=== PATIENT | male | born 1970 | race American Indian/Alaskan Native ===

== ENCOUNTER 2017-12-23 15:38 | Inpatient (IN) | payer MEDICAID ==
[~2017-12-23] VITALS: Ht 180.3 cm; Wt 109.1 kg
[2017-12-23] MEDS ORDERED: ondansetron/PF 4mg/2ml inj IV ONE (15:50)
[2017-12-23] MEDS ORDERED: normal saline 1000ML IV soln IV ONE (15:50)
[2017-12-23] MEDS ORDERED: morphine 4 MG/ML inj SYRINge IV ONE (15:50)
[2017-12-23 16:30] LABS: BASOPHILS # (AUTO) 0.1 X10'3 (0-0.2); BASOPHILS % (AUTO) 0.6 % (0-1); EOSINOPHILS # (AUTO) 0.1 X10'3 (0-0.9); EOSINOPHILS % (AUTO) 0.7 % (0-6); HEMATOCRIT 39.5 % (42.0-52.0); HEMOGLOBIN 13.7 g/dl (14.0-17.9); LYMPHOCYTES # (AUTO) 1.9 X10'3 (1.1-4.8); LYMPHOCYTES % (AUTO) 16.7 % (21-51); MEAN CORPUSCULAR HEMOGLOBIN 29.6 PG (27.0-31.0); MEAN CORPUSCULAR HGB CONC 34.8 % (33.0-36.5); MEAN CORPUSCULAR VOLUME 85.1 FL (78-98); MEAN PLATELET VOLUME 7.9 FL (7.4-10.4); MONOCYTES % (AUTO) 8.5 % (2-12); NEUTROPHILS # (AUTO) 8.2 X10'3 (1.8-7.7); NEUTROPHILS % (AUTO) 73.5 % (42-75); PLATELET COUNT 371 X10'3 (140-440); RED BLOOD COUNT 4.64 X10'6 (4.70-6.10); RED CELL DISTRIBUTION WIDTH 12.2 % (11.5-14.5); WHITE BLOOD COUNT 11.3 X10'3 (4.5-11.0)
[2017-12-23 16:37] LABS: ALANINE AMINOTRANSFERASE 29 U/L (12-78); ALBUMIN 2.7 G/DL (3.4-5.0); ALBUMIN/GLOBULIN RATIO 0.6 (1.1-1.5); ALKALINE PHOSPHATASE 93 IU/L (46-116); ANION GAP 14 (8-16); ASPARTATE AMINO TRANSFERASE 21 U/L (10-37); BILIRUBIN,TOTAL 0.4 MG/DL (0.1-1.0); BLOOD UREA NITROGEN 12 MG/DL (7-18); BUN/CREATININE RATIO 13.8 (5.4-32.0); CALCIUM 8.2 MG/DL (8.5-10.1); CHLORIDE 104 MMOL/L (99-107); CREATININE 0.87 MG/DL (0.60-1.10); GLUCOSE 94 MG/DL (70-104); POTASSIUM 3.7 MMOL/L (3.5-5.1); SODIUM 137 MMOL/L (135-145); TOTAL CARBON DIOXIDE 18.9 MMOL/L (24-32); TOTAL PROTEIN 6.9 G/DL (6.4-8.2); eGFR > 90 ML/MIN
[2017-12-23 16:38] LABS: INR 1.1 INR; PROTHROMBIN TIME 10.9 SECONDS (9.0-12.0)
[2017-12-23] MEDS ORDERED: ondansetron/PF 4mg/2ml inj IV PRN (17:00)
[2017-12-23] MEDS ORDERED: magnesium hydroxide 30ml (MOM) UD suspension PO PRN (17:00)
[2017-12-23] MEDS ORDERED: mag hydrox/Alum hydrox/simeth 30ml oral suspension PO PRN (17:00)
[2017-12-23] MEDS ORDERED: HYDROmorphone inj. 0.5 MG/0.5 ML DISP.SYRIN IV PRN ×2 (17:00)
[2017-12-23] MEDS ORDERED: HYDROcodone/acetaminophen 5mg/325mg tablet PO PRN (17:00)
[2017-12-23] MEDS ORDERED: acetaminophen 325mg tablet PO PRN ×2 (17:00)
[2017-12-23] MEDS ORDERED: nitroGLYCERIN 0.4mg SUBLingual tab SL PRN (17:20)
[2017-12-23] MEDS: normal saline 1000ml 1,000 ML IV SCH ×2 (19:35→21:15)
[2017-12-23] MEDS: heparin, porcine 5000 units/ml vial SQ SCH (19:36)
[2017-12-23 20:16] LABS: CLARITY,URINE CLEAR (Clear); COLOR,URINE YELLOW (Yellow); GLUCOSE, URINE NEGATIVE (Neg); KETONES,URINE NEGATIVE (Neg); LEUKOCYTE ESTERASE ,URINE NEGATIVE (Neg); NITRITES, URINE NEGATIVE (Neg); OCCULT BLOOD,URINE NEGATIVE (Neg); PH,URINE 5.5 (4.8-8.0); PROTEIN,URINE NEGATIVE (Neg); UROBILINOGEN,URINE 0.2 E.U/dL (0.2-1.0)
[2017-12-23 20:22] LABS: UA COLLECTION TYPE CLN CATCH MIDSTREAM
[2017-12-23] MEDS: morphine 4 MG/ML inj SYRINge IV PRN (20:52)
[2017-12-23] MEDS ORDERED: temazepam 15mg capsule PO PRN (21:00)
[2017-12-23 21:55] VITALS: BP 117/70
[2017-12-24] VITALS (16 sets, daily range): BP systolic 101–123; BP diastolic 50–73
[2017-12-24] MEDS: morphine 4 MG/ML inj SYRINge IV PRN ×5 (00:35→22:53)
[2017-12-24] MEDS ORDERED: glucagon, human recombinant 1mg kit SUBCUT PRN (00:50)
[2017-12-24] MEDS ORDERED: dextrose ORAL solution 15 GM/59 ML bottle PO PRN ×2 (00:50)
[2017-12-24] MEDS ORDERED: dextrose 50%-water 50ml dispensing syringe IV PRN ×2 (00:50)
[2017-12-24] MEDS ORDERED: MESSAGE TO PHARMACY PO ONE (00:50)
[2017-12-24] MEDS ORDERED: insulin glargine (Lantus) pen - multi-dose SQ ONE (00:57)
[2017-12-24] MEDS ORDERED: insulin Lispro (HumaLOG) vial - multi-dose SQ ONE (00:57)
[2017-12-24] MEDS: insulin Lispro (HumaLOG) vial - multi-dose SQ SCH ×3 (08:02→19:49)
[2017-12-24] MEDS: heparin, porcine 5000 units/ml vial SQ SCH ×2 (08:11→19:55)
[2017-12-24 08:51] LABS: ALBUMIN 2.5 G/DL (3.4-5.0); ANION GAP 8 (8-16); BLOOD UREA NITROGEN 12 MG/DL (7-18); BUN/CREATININE RATIO 10.6 (5.4-32.0); CALCIUM 8.5 MG/DL (8.5-10.1); CHLORIDE 104 MMOL/L (99-107); CREATININE 1.13 MG/DL (0.60-1.10); GLUCOSE 257 MG/DL (70-104); POTASSIUM 4.6 MMOL/L (3.5-5.1); SODIUM 137 MMOL/L (135-145); TOTAL CARBON DIOXIDE 25.2 MMOL/L (24-32); eGFR 70 ML/MIN
[2017-12-24] MEDS ORDERED: cefTRIAXone 1g/NS 100ml IVPB 100 ML IV ONE (09:00)
[2017-12-24] MEDS: pantoprazole 40 MG vial IV SCH (09:41)
[2017-12-24] MEDS: vancomycin/NS 1 GM ADD-VANTAGE 250 ML X 1 DOSE IV SCH ×2 (10:40→14:10)
[2017-12-24] MEDS ORDERED: NOVRI SQ (11:09)
[2017-12-24] MEDS ORDERED: GABA-532 PO (11:09)
[2017-12-24] MEDS ORDERED: BACDS PO (11:09)
[2017-12-24] MEDS ORDERED: ASPI81TA52 PO (11:09)
[2017-12-24] MEDS ORDERED: INSU100V30 SQ (11:09)
[2017-12-24] MEDS ORDERED: HYDR-565 PO (11:09)
[2017-12-24] MEDS ORDERED: OMEP40CA37 PO (11:09)
[2017-12-24] MEDS ORDERED: LISI-600 PO (11:09)
[2017-12-24] MEDS: HYDROcodone/acetaminophen 10/325mg tab PO PRN ×2 (12:06→19:56)
[2017-12-24] MEDS: normal saline 1000ml 1,000 ML IV SCH ×2 (12:56→22:56)
[2017-12-24] MEDS ORDERED: BUPIVAcaine/PF 2.5 mg/ml (0.25%) 30ml vial ONE (13:30)
[2017-12-24] MEDS ORDERED: midazolam 2 mg/2 ml injection ONE (16:03)
[2017-12-24] MEDS ORDERED: fentaNYL/PF 50MCG/1 ML 2ML syringe ONE (16:03)
[2017-12-24] MEDS ORDERED: LIDOcaine 2% (20mg/ml) 5ml vial ONE (16:04)
[2017-12-24] MEDS ORDERED: ondansetron/PF 4mg/2ml inj ONE (16:04)
[2017-12-24] MEDS ORDERED: propofol inj 20 ML IV ONE (16:04)
[2017-12-24] MEDS ORDERED: sevoflurane 250ml liquid IH ONE (16:05)
[2017-12-24] MEDS ORDERED: ringers solution, lacted 1,000 ML IV SCH (16:22)
[2017-12-24] MEDS ORDERED: fentaNYL/PF 50MCG/1 ML 2ML syringe IV PRN ×2 (16:25)
[2017-12-24] MEDS ORDERED: hydrALAZINE 20mg/ml inj. IV PRN (16:25)
[2017-12-24] MEDS ORDERED: ondansetron/PF 4mg/2ml inj IV PRN (16:25)
[2017-12-24] MEDS ORDERED: labetalol 5mg/ml 20ml inj. IV PRN (16:25)
[2017-12-24] MEDS ORDERED: morphine 4 MG/ML inj SYRINge IV PRN ×2 (16:25)
[2017-12-24] MEDS: lactobacillus rhamnosus 10,000 MMU CELLS/CAPSULE PO SCH (19:54)
[2017-12-24] MEDS: insulin glargine (Lantus) pen - multi-dose SQ SCH (21:48)
[2017-12-25] VITALS: BP 119/69
[2017-12-25] MEDS: HYDROcodone/acetaminophen 10/325mg tab PO PRN ×5 (00:30→21:45)
[2017-12-25] MEDS: morphine 4 MG/ML inj SYRINge IV PRN ×3 (03:37→19:06)
[2017-12-25 06:00] VITALS: BP 126/67
[2017-12-25 06:06] LABS: BASOPHILS % (AUTO) 0.5 % (0-1); EOSINOPHILS # (AUTO) 0.3 X10'3 (0-0.9); EOSINOPHILS % (AUTO) 4.1 % (0-6); HEMATOCRIT 37.3 % (42.0-52.0); HEMOGLOBIN 13.1 g/dl (14.0-17.9); LYMPHOCYTES # (AUTO) 1.7 X10'3 (1.1-4.8); LYMPHOCYTES % (AUTO) 24.7 % (21-51); MEAN CORPUSCULAR HEMOGLOBIN 30.5 PG (27.0-31.0); MEAN CORPUSCULAR HGB CONC 35.2 % (33.0-36.5); MEAN CORPUSCULAR VOLUME 86.9 FL (78-98); MEAN PLATELET VOLUME 7.3 FL (7.4-10.4); MONOCYTES # (AUTO) 0.7 X10'3 (0-0.9); NEUTROPHILS # (AUTO) 4.1 X10'3 (1.8-7.7); NEUTROPHILS % (AUTO) 60.7 % (42-75); PLATELET COUNT 344 X10'3 (140-440); RED BLOOD COUNT 4.29 X10'6 (4.70-6.10); RED CELL DISTRIBUTION WIDTH 12.5 % (11.5-14.5); WHITE BLOOD COUNT 6.8 X10'3 (4.5-11.0)
[2017-12-25 06:12] LABS: PROTHROMBIN TIME 10.7 SECONDS (9.0-12.0)
[2017-12-25 06:22] LABS: ALBUMIN 2.3 G/DL (3.4-5.0); ANION GAP 8 (8-16); BLOOD UREA NITROGEN 10 MG/DL (7-18); BUN/CREATININE RATIO 10.2 (5.4-32.0); CALCIUM 8.1 MG/DL (8.5-10.1); CHLORIDE 104 MMOL/L (99-107); CREATININE 0.98 MG/DL (0.60-1.10); GLUCOSE 255 MG/DL (70-104); MAGNESIUM 1.8 MG/DL (1.5-2.4); POTASSIUM 4.3 MMOL/L (3.5-5.1); SODIUM 137 MMOL/L (135-145); TOTAL CARBON DIOXIDE 25.4 MMOL/L (24-32); eGFR 82 ML/MIN
[2017-12-25] MEDS: insulin Lispro (HumaLOG) vial - multi-dose SQ SCH ×3 (08:25→19:03)
[2017-12-25] MEDS: lactobacillus rhamnosus 10,000 MMU CELLS/CAPSULE PO SCH ×2 (08:25→19:07)
[2017-12-25] MEDS: heparin, porcine 5000 units/ml vial SQ SCH ×2 (08:27→19:07)
[2017-12-25] MEDS: pantoprazole 40 MG vial IV SCH (08:27)
[2017-12-25] MEDS: normal saline 1000ml 1,000 ML IV SCH ×2 (08:56→16:53)
[2017-12-25] MEDS ORDERED: HYDROcodone/acetaminophen 10/325mg tab PO PRN (09:50)
[2017-12-25 10:54] LABS: PROTHROMBIN TIME 10.7 SECONDS (9.0-12.0)
[2017-12-25 12:00] VITALS: BP 137/75
[2017-12-25 18:00] VITALS: BP 135/84
[2017-12-25] MEDS: insulin glargine (Lantus) pen - multi-dose SQ SCH (21:43)
[2017-12-25] MEDS: sennosides/docusate sodium tablet PO SCH (21:44)
[2017-12-26] VITALS: BP 122/69
[2017-12-26] MEDS: morphine 4 MG/ML inj SYRINge IV PRN ×3 (01:21→19:50)
[2017-12-26] MEDS: HYDROcodone/acetaminophen 10/325mg tab PO PRN (04:37)
[2017-12-26] MEDS: normal saline 1000ml 1,000 ML IV SCH ×3 (04:38→17:41)
[2017-12-26 06:05] LABS: BASOPHILS % (AUTO) 0.5 % (0-1); EOSINOPHILS # (AUTO) 0.3 X10'3 (0-0.9); EOSINOPHILS % (AUTO) 4.7 % (0-6); HEMOGLOBIN 13.4 g/dl (14.0-17.9); LYMPHOCYTES # (AUTO) 1.7 X10'3 (1.1-4.8); LYMPHOCYTES % (AUTO) 22.7 % (21-51); MEAN CORPUSCULAR HEMOGLOBIN 30.4 PG (27.0-31.0); MEAN CORPUSCULAR HGB CONC 35.3 % (33.0-36.5); MEAN CORPUSCULAR VOLUME 86.1 FL (78-98); MEAN PLATELET VOLUME 7.4 FL (7.4-10.4); MONOCYTES # (AUTO) 0.7 X10'3 (0-0.9); MONOCYTES % (AUTO) 9.9 % (2-12); NEUTROPHILS # (AUTO) 4.5 X10'3 (1.8-7.7); NEUTROPHILS % (AUTO) 62.2 % (42-75); PLATELET COUNT 383 X10'3 (140-440); RED BLOOD COUNT 4.41 X10'6 (4.70-6.10); RED CELL DISTRIBUTION WIDTH 12.6 % (11.5-14.5); WHITE BLOOD COUNT 7.3 X10'3 (4.5-11.0)
[2017-12-26 06:26] LABS: ALBUMIN 2.4 G/DL (3.4-5.0); ANION GAP 7 (8-16); BLOOD UREA NITROGEN 8 MG/DL (7-18); BUN/CREATININE RATIO 9.1 (5.4-32.0); CALCIUM 8.6 MG/DL (8.5-10.1); CHLORIDE 102 MMOL/L (99-107); CREATININE 0.88 MG/DL (0.60-1.10); GLUCOSE 210 MG/DL (70-104); MAGNESIUM 1.7 MG/DL (1.5-2.4); POTASSIUM 4.2 MMOL/L (3.5-5.1); SODIUM 138 MMOL/L (135-145); eGFR > 90 ML/MIN
[2017-12-26] MEDS: lactobacillus rhamnosus 10,000 MMU CELLS/CAPSULE PO SCH ×2 (07:52→20:39)
[2017-12-26] MEDS: pantoprazole 40mg Tablet.DR PO SCH (07:52)
[2017-12-26] MEDS: heparin, porcine 5000 units/ml vial SQ SCH ×2 (07:54→20:40)
[2017-12-26 08:00] VITALS: BP 130/73
[2017-12-26] MEDS ORDERED: VANCOMYCIN LEVEL IV NR (09:30)
[2017-12-26] MEDS: insulin Lispro (HumaLOG) vial - multi-dose SQ SCH ×3 (09:51→18:28)
[2017-12-26] MEDS ORDERED: piperacillin/tazo 3.375gm/50ml 50 ML IV ONE (10:00)
[2017-12-26 11:25] VITALS: BP 114/64
[2017-12-26] MEDS: piperacillin/tazo 3.375gm/50ml 50 ML IV SCH ×3 (12:23→19:39)
[2017-12-26 20:00] VITALS: BP 134/73
[2017-12-26] MEDS: sennosides/docusate sodium tablet PO SCH (20:39)
[2017-12-26] MEDS: insulin glargine (Lantus) pen - multi-dose SQ SCH (20:49)
[2017-12-27 00:08] VITALS: BP 125/58
[2017-12-27] MEDS: piperacillin/tazo 3.375gm/50ml 50 ML IV SCH ×4 (01:46→20:59)
[2017-12-27] MEDS: morphine 4 MG/ML inj SYRINge IV PRN ×2 (01:50→07:27)
[2017-12-27] MEDS: lactobacillus rhamnosus 10,000 MMU CELLS/CAPSULE PO SCH ×2 (07:24→20:58)
[2017-12-27] MEDS: pantoprazole 40mg Tablet.DR PO SCH (07:24)
[2017-12-27] MEDS: heparin, porcine 5000 units/ml vial SQ SCH ×2 (07:26→20:59)
[2017-12-27 07:56] VITALS: BP 122/77
[2017-12-27] MEDS: insulin Lispro (HumaLOG) vial - multi-dose SQ SCH ×4 (09:34→21:07)
[2017-12-27 11:00] VITALS: BP 108/52
[2017-12-27] MEDS: normal saline 1000ml 1,000 ML IV SCH ×2 (11:57→20:56)
[2017-12-27] MEDS ORDERED: VANCOMYCIN LEVEL IV NR (12:30)
[2017-12-27 20:00] VITALS: BP 133/83
[2017-12-27] MEDS ORDERED: MESSAGE TO PHARMACY IV ONE (20:30)
[2017-12-27] MEDS: sennosides/docusate sodium tablet PO SCH (20:58)
[2017-12-27] MEDS: insulin glargine (Lantus) pen - multi-dose SQ SCH (21:05)
[2017-12-28 00:22] VITALS: BP 131/78
[2017-12-28] MEDS: piperacillin/tazo 3.375gm/50ml 50 ML IV SCH ×4 (01:16→21:39)
[2017-12-28] MEDS: normal saline 1000ml 1,000 ML IV SCH (06:56)
[2017-12-28 07:19] VITALS: BP 132/83
[2017-12-28] MEDS: pantoprazole 40mg Tablet.DR PO SCH (07:56)
[2017-12-28] MEDS: lactobacillus rhamnosus 10,000 MMU CELLS/CAPSULE PO SCH ×2 (07:56→21:39)
[2017-12-28] MEDS: heparin, porcine 5000 units/ml vial SQ SCH ×2 (07:56→21:39)
[2017-12-28] MEDS: insulin Lispro (HumaLOG) vial - multi-dose SQ SCH ×3 (08:54→18:56)
[2017-12-28 11:27] VITALS: BP 125/80
[2017-12-28 19:00] VITALS: BP 126/75
[2017-12-28] MEDS: sennosides/docusate sodium tablet PO SCH (21:39)
[2017-12-28] MEDS: insulin glargine (Lantus) pen - multi-dose SQ SCH (21:44)
[2017-12-28 23:00] VITALS: BP 145/90
[2017-12-29] MEDS: piperacillin/tazo 3.375gm/50ml 50 ML IV SCH ×2 (01:52→08:44)
[2017-12-29] MEDS: normal saline 1000ml 1,000 ML IV SCH (01:53)
[2017-12-29 07:33] VITALS: BP 157/95
[2017-12-29] MEDS: pantoprazole 40mg Tablet.DR PO SCH (08:44)
[2017-12-29] MEDS: lactobacillus rhamnosus 10,000 MMU CELLS/CAPSULE PO SCH ×2 (08:45→20:58)
[2017-12-29] MEDS: heparin, porcine 5000 units/ml vial SQ SCH ×2 (08:45→20:59)
[2017-12-29] MEDS: insulin Lispro (HumaLOG) vial - multi-dose SQ SCH ×4 (09:00→20:56)
[2017-12-29 11:40] VITALS: BP 127/82
[2017-12-29] MEDS: clindamycin 600mg/D5W 50ml 50 ML IV SCH ×2 (14:00→21:00)
[2017-12-29 19:20] VITALS: BP 142/78
[2017-12-29] MEDS: insulin glargine (Lantus) pen - multi-dose SQ SCH (20:55)
[2017-12-29] MEDS: sennosides/docusate sodium tablet PO SCH (20:59)
[2017-12-29 23:00] VITALS: BP 135/81
[2017-12-30] MEDS: clindamycin 600mg/D5W 50ml 50 ML IV SCH ×2 (01:59→07:11)
[2017-12-30 05:51] LABS: ALANINE AMINOTRANSFERASE 49 U/L (12-78); ALBUMIN 2.8 G/DL (3.4-5.0); ALBUMIN/GLOBULIN RATIO 0.6 (1.1-1.5); ALKALINE PHOSPHATASE 99 IU/L (46-116); ANION GAP 9 (8-16); ASPARTATE AMINO TRANSFERASE 27 U/L (10-37); BILIRUBIN,TOTAL 0.4 MG/DL (0.1-1.0); BLOOD UREA NITROGEN 14 MG/DL (7-18); BUN/CREATININE RATIO 12.3 (5.4-32.0); CALCIUM 9.1 MG/DL (8.5-10.1); CHLORIDE 101 MMOL/L (99-107); CREATININE 1.14 MG/DL (0.60-1.10); GLUCOSE 274 MG/DL (70-104); POTASSIUM 3.9 MMOL/L (3.5-5.1); SODIUM 139 MMOL/L (135-145); TOTAL CARBON DIOXIDE 29.2 MMOL/L (24-32); TOTAL PROTEIN 7.7 G/DL (6.4-8.2); eGFR 69 ML/MIN
[2017-12-30 07:00] VITALS: BP 120/83
[2017-12-30] MEDS: lactobacillus rhamnosus 10,000 MMU CELLS/CAPSULE PO SCH (07:11)
[2017-12-30] MEDS: heparin, porcine 5000 units/ml vial SQ SCH (07:11)
[2017-12-30] MEDS: pantoprazole 40mg Tablet.DR PO SCH (07:11)
[2017-12-30] MEDS: insulin Lispro (HumaLOG) vial - multi-dose SQ SCH (09:11)
== END 2017-12-30 11:00 | disposition left against medical advice (07) | DRG 710 ==
LOC: ER 15:38 → ED HOLD 18:46 → MED 3N 21:55 → CMPBEDREQ 22:15 → MED 3N 12-29 09:50
PROVIDERS: ADMIT Internal Medicine; ATTEND Internal Medicine
PROC: 0Y6R0Z1 Detachment at Right 2nd Toe, High, Open Approach (ICD-10-PCS; principal; 2017-12-24 16:05)
DX: A41.9 Sepsis, unspecified organism (principal); E11.621 Type 2 diabetes mellitus with foot ulcer; I96 Gangrene, not elsewhere classified; E11.52 Type 2 diabetes mellitus with diabetic peripheral angiopathy with gangrene; L97.519 Non-pressure chronic ulcer of other part of right foot with unspecified severity; Z53.21 Procedure and treatment not carried out due to patient leaving prior to being seen by health care provider; L03.031 Cellulitis of right toe; Z79.4 Long term (current) use of insulin; Z91.19 Patient's noncompliance with other medical treatment and regimen
CPT/HCPCS: 36415; 71045; 73630; 73718; 80048; 80053; 80202; 81003; 82948; 83036; 83605; 83735; 84484; 85025; 85610; 87040; 87070; 93005; 93926; 96374; 96375; 97116; 97161; 97530; 99285; A6222; A6223; A6446; A6449; A7000; C9113; J0696; J1644; J1815; J2001; J2250; J2270; J2405; J2543; J2704; J3010; J3370; J3490; J7030; J7120

== ENCOUNTER 2018-01-07 07:38 | Emergency (ER) | payer OTHER, MEDICAID ==
[~2018-01-07] VITALS: Ht 180.3 cm; Wt 104.5 kg
[~2018-01-07 07:38] MED LIST: ASPI81TA52 PO; BACDS PO; GABA-532 PO; HYDR-565 PO; INSU100V30 SQ; LISI-600 PO; NOVRI SQ; OMEP40CA37 PO
[2018-01-07 08:20] LABS: BASOPHILS # (AUTO) 0.1 X10'3 (0-0.2); BASOPHILS % (AUTO) 0.8 % (0-1); EOSINOPHILS # (AUTO) 0.2 X10'3 (0-0.9); EOSINOPHILS % (AUTO) 3.7 % (0-6); HEMATOCRIT 44.3 % (42.0-52.0); HEMOGLOBIN 15.4 g/dl (14.0-17.9); LYMPHOCYTES # (AUTO) 2.3 X10'3 (1.1-4.8); LYMPHOCYTES % (AUTO) 33.9 % (21-51); MEAN CORPUSCULAR HEMOGLOBIN 29.7 PG (27.0-31.0); MEAN CORPUSCULAR HGB CONC 34.8 % (33.0-36.5); MEAN CORPUSCULAR VOLUME 85.3 FL (78-98); MEAN PLATELET VOLUME 7.5 FL (7.4-10.4); MONOCYTES # (AUTO) 0.5 X10'3 (0-0.9); MONOCYTES % (AUTO) 7.6 % (2-12); NEUTROPHILS # (AUTO) 3.7 X10'3 (1.8-7.7); PLATELET COUNT 483 X10'3 (140-440); RED BLOOD COUNT 5.19 X10'6 (4.70-6.10); RED CELL DISTRIBUTION WIDTH 13.6 % (11.5-14.5); WHITE BLOOD COUNT 6.8 X10'3 (4.5-11.0)
[2018-01-07 08:21] LABS: CLARITY,URINE CLEAR (Clear); COLOR,URINE YELLOW (Yellow); GLUCOSE, URINE NEGATIVE (Neg); KETONES,URINE NEGATIVE (Neg); LEUKOCYTE ESTERASE ,URINE NEGATIVE (Neg); NITRITES, URINE NEGATIVE (Neg); OCCULT BLOOD,URINE NEGATIVE (Neg); PH,URINE 5.5 (4.8-8.0); PROTEIN,URINE NEGATIVE (Neg); UROBILINOGEN,URINE 0.2 E.U/dL (0.2-1.0)
[2018-01-07 08:26] LABS: UA COLLECTION TYPE CLN CATCH MIDSTREAM
[2018-01-07 08:29] LABS: PARTIAL THROMBOPLASTIN TIME 28 SECONDS (22-32); PROTHROMBIN TIME 10.2 SECONDS (9.0-12.0)
[2018-01-07 08:37] LABS: ALANINE AMINOTRANSFERASE 39 U/L (12-78); ALBUMIN 3.7 G/DL (3.4-5.0); ALBUMIN/GLOBULIN RATIO 0.8 (1.1-1.5); ALKALINE PHOSPHATASE 107 IU/L (46-116); ANION GAP 11 (8-16); ASPARTATE AMINO TRANSFERASE 22 U/L (10-37); BILIRUBIN,TOTAL 0.6 MG/DL (0.1-1.0); BLOOD UREA NITROGEN 22 MG/DL (7-18); BUN/CREATININE RATIO 18.3 (5.4-32.0); CALCIUM 9.4 MG/DL (8.5-10.1); CHLORIDE 102 MMOL/L (99-107); GLUCOSE 118 MG/DL (70-104); POTASSIUM 3.9 MMOL/L (3.5-5.1); SODIUM 135 MMOL/L (135-145); TOTAL CARBON DIOXIDE 21.9 MMOL/L (24-32); TOTAL PROTEIN 8.4 G/DL (6.4-8.2); eGFR 65 ML/MIN
[2018-01-07 09:26] LABS: C-REACTIVE PROTEIN 0.17 MG/DL (0.0-0.5)
[2018-01-07 12:09] VITALS: BP 115/91
== END 2018-01-07 12:15 | disposition home or self-care (01) ==
LOC: ER 07:39
DX: T87.9 Unspecified complications of amputation stump (principal); F17.200 Nicotine dependence, unspecified, uncomplicated; Z98.890 Other specified postprocedural states; Z79.82 Long term (current) use of aspirin
CPT/HCPCS: 36415; 71045; 73630; 80053; 81003; 82948; 83605; 84145; 85025; 85610; 85730; 86140; 87040; 99285

== ENCOUNTER 2018-01-08 16:49 | Inpatient (IN) | payer MEDICAID, OTHER ==
[~2018-01-08] VITALS: Ht 180.3 cm; Wt 99.5 kg
[2018-01-08] MEDS ORDERED: temazepam 15mg capsule PO PRN (21:00)
[2018-01-08 22:06] LABS: BASOPHILS % (AUTO) 0.5 % (0-1); EOSINOPHILS # (AUTO) 0.2 X10'3 (0-0.9); HEMOGLOBIN 13.8 g/dl (14.0-17.9); LYMPHOCYTES # (AUTO) 2.3 X10'3 (1.1-4.8); LYMPHOCYTES % (AUTO) 39.6 % (21-51); MEAN CORPUSCULAR HEMOGLOBIN 29.8 PG (27.0-31.0); MEAN CORPUSCULAR HGB CONC 34.4 % (33.0-36.5); MEAN CORPUSCULAR VOLUME 86.5 FL (78-98); MEAN PLATELET VOLUME 7.7 FL (7.4-10.4); MONOCYTES # (AUTO) 0.5 X10'3 (0-0.9); NEUTROPHILS # (AUTO) 2.8 X10'3 (1.8-7.7); NEUTROPHILS % (AUTO) 46.9 % (42-75); PLATELET COUNT 410 X10'3 (140-440); RED BLOOD COUNT 4.63 X10'6 (4.70-6.10); RED CELL DISTRIBUTION WIDTH 13.9 % (11.5-14.5); WHITE BLOOD COUNT 5.9 X10'3 (4.5-11.0)
[2018-01-08 22:13] LABS: PARTIAL THROMBOPLASTIN TIME 27 SECONDS (22-32); PROTHROMBIN TIME 10.4 SECONDS (9.0-12.0)
[2018-01-08 22:35] LABS: ALANINE AMINOTRANSFERASE 37 U/L (12-78); ALBUMIN 3.3 G/DL (3.4-5.0); ALBUMIN/GLOBULIN RATIO 0.8 (1.1-1.5); ALKALINE PHOSPHATASE 120 IU/L (46-116); ANION GAP 6 (8-16); ASPARTATE AMINO TRANSFERASE 14 U/L (10-37); BILIRUBIN,TOTAL 0.3 MG/DL (0.1-1.0); BLOOD UREA NITROGEN 17 MG/DL (7-18); BUN/CREATININE RATIO 12.1 (5.4-32.0); CALCIUM 8.8 MG/DL (8.5-10.1); CHLORIDE 108 MMOL/L (99-107); CREATININE 1.41 MG/DL (0.60-1.10); GLUCOSE 234 MG/DL (70-104); POTASSIUM 4.5 MMOL/L (3.5-5.1); SODIUM 141 MMOL/L (135-145); TOTAL CARBON DIOXIDE 26.8 MMOL/L (24-32); TOTAL PROTEIN 7.3 G/DL (6.4-8.2); eGFR 54 ML/MIN
[2018-01-08] MEDS ORDERED: magnesium 2GM in 50ml NS 50 ML IV PRN (23:10)
[2018-01-08] MEDS ORDERED: potassium Cl 20 mEq SR tablet PO PRN ×2 (23:10)
[2018-01-08] MEDS ORDERED: potassium Cl 40MEQ/NS 500ml 500 ML IV PRN ×2 (23:10)
[2018-01-08] MEDS ORDERED: acetaminophen 325mg tablet PO PRN (23:10)
[2018-01-08] MEDS ORDERED: magnesium Cl slow-release 64mg tablet PO PRN (23:10)
[2018-01-08] MEDS ORDERED: morphine 4 MG/ML inj SYRINge IV PRN (23:10)
[2018-01-08] MEDS ORDERED: magnesium 4gm in 100ml NS 100 ML IV PRN (23:10)
[2018-01-08] MEDS ORDERED: mag hydrox/Alum hydrox/simeth 30ml oral suspension PO PRN (23:10)
[2018-01-08] MEDS ORDERED: magnesium hydroxide 30ml (MOM) UD suspension PO PRN (23:10)
[2018-01-08] MEDS ORDERED: vancomycin/NS 1 GM ADD-VANTAGE 250 ML IV ONE (23:45)
[2018-01-09] VITALS (16 sets, daily range): BP systolic 100–153; BP diastolic 50–103
[2018-01-09] MEDS: normal saline 1000ml 1,000 ML IV SCH ×3 (00:37→20:09)
[2018-01-09] MEDS ORDERED: insulin Lispro (HumaLOG) vial - multi-dose SQ SCH (00:50)
[2018-01-09] MEDS ORDERED: glucagon, human recombinant 1mg kit SUBCUT PRN (00:50)
[2018-01-09] MEDS ORDERED: dextrose 50%-water 50ml dispensing syringe IV PRN ×2 (00:50)
[2018-01-09] MEDS ORDERED: dextrose ORAL solution 15 GM/59 ML bottle PO PRN ×2 (00:50)
[2018-01-09] MEDS ORDERED: MESSAGE TO PHARMACY PO ONE (00:50)
[2018-01-09] MEDS: insulin glargine (Lantus) pen - multi-dose SQ SCH ×2 (01:00→21:10)
[2018-01-09] MEDS ORDERED: insulin Lispro (HumaLOG) vial - multi-dose SQ ONE (01:05)
[2018-01-09] MEDS ORDERED: insulin regular, human 10 units/0.1 ml syringe SQ ONE ×2 (01:10→03:05)
[2018-01-09] MEDS ORDERED: insulin regular, human 10 units/0.1 ml syringe IV ONE (01:10)
[2018-01-09] MEDS: ondansetron/PF 4mg/2ml inj IV PRN (01:31)
[2018-01-09] MEDS: morphine 4 MG/ML inj SYRINge IV PRN ×2 (01:33→05:37)
[2018-01-09 06:18] LABS: BASOPHILS % (AUTO) 0.8 % (0-1); EOSINOPHILS # (AUTO) 0.3 X10'3 (0-0.9); HEMATOCRIT 37.3 % (42.0-52.0); HEMOGLOBIN 13.2 g/dl (14.0-17.9); LYMPHOCYTES # (AUTO) 2.2 X10'3 (1.1-4.8); LYMPHOCYTES % (AUTO) 43.5 % (21-51); MEAN CORPUSCULAR HEMOGLOBIN 30.4 PG (27.0-31.0); MEAN CORPUSCULAR HGB CONC 35.4 % (33.0-36.5); MEAN CORPUSCULAR VOLUME 85.9 FL (78-98); MEAN PLATELET VOLUME 7.5 FL (7.4-10.4); MONOCYTES # (AUTO) 0.4 X10'3 (0-0.9); MONOCYTES % (AUTO) 8.6 % (2-12); NEUTROPHILS # (AUTO) 2.2 X10'3 (1.8-7.7); NEUTROPHILS % (AUTO) 42.1 % (42-75); PLATELET COUNT 380 X10'3 (140-440); RED BLOOD COUNT 4.35 X10'6 (4.70-6.10); RED CELL DISTRIBUTION WIDTH 13.9 % (11.5-14.5); WHITE BLOOD COUNT 5.1 X10'3 (4.5-11.0)
[2018-01-09 06:48] LABS: ALANINE AMINOTRANSFERASE 34 U/L (12-78); ALBUMIN/GLOBULIN RATIO 0.8 (1.1-1.5); ALKALINE PHOSPHATASE 118 IU/L (46-116); ANION GAP 11 (8-16); ASPARTATE AMINO TRANSFERASE 14 U/L (10-37); BILIRUBIN,TOTAL 0.4 MG/DL (0.1-1.0); BLOOD UREA NITROGEN 17 MG/DL (7-18); BUN/CREATININE RATIO 15.3 (5.4-32.0); CALCIUM 8.1 MG/DL (8.5-10.1); CHLORIDE 106 MMOL/L (99-107); CHOL/HDL RATIO 4.1 (0.00-4.99); CHOLESTEROL 157 MG/DL (0-200); CREATININE 1.11 MG/DL (0.60-1.10); GLUCOSE 271 MG/DL (70-104); HDL CHOLESTEROL 38 MG/DL (35-60); LDL CHOLESTEROL 86 MG/DL (50-100); MAGNESIUM 1.8 MG/DL (1.5-2.4); SODIUM 140 MMOL/L (135-145); TOTAL CARBON DIOXIDE 23.4 MMOL/L (24-32); TOTAL PROTEIN 6.7 G/DL (6.4-8.2); TRIGLYCERIDES 252 MG/DL (20-135); eGFR 71 ML/MIN
[2018-01-09] MEDS: aspirin 81mg tablet.DR PO SCH (07:59)
[2018-01-09] MEDS: lisinopril 20mg tablet PO SCH (07:59)
[2018-01-09] MEDS: lactobacillus rhamnosus 10,000 MMU CELLS/CAPSULE PO SCH ×2 (07:59→20:06)
[2018-01-09] MEDS: gabapentin 300mg capsule PO SCH ×3 (07:59→20:06)
[2018-01-09] MEDS: pantoprazole 40mg Tablet.DR PO SCH (07:59)
[2018-01-09] MEDS ORDERED: vancomycin/NS 1 GM ADD-VANTAGE 250 ML IV SCH (08:00)
[2018-01-09] MEDS: K and/or MAG REPLACEMENT MC SCH (08:42)
[2018-01-09] MEDS ORDERED: BUPIVAcaine/PF 2.5 mg/ml (0.25%) 30ml vial ONE (10:35)
[2018-01-09] MEDS ORDERED: morphine 10mg/ml inj. ONE (14:29)
[2018-01-09] MEDS ORDERED: morphine 10mg/ml inj. IV ONE (14:30)
[2018-01-09] MEDS ORDERED: midazolam 2 mg/2 ml injection ONE (15:59)
[2018-01-09] MEDS ORDERED: fentaNYL/PF 50MCG/1 ML 2ML syringe ONE (15:59)
[2018-01-09] MEDS ORDERED: LIDOcaine 2% (20mg/ml) 5ml vial ONE (16:23)
[2018-01-09] MEDS ORDERED: ondansetron/PF 4mg/2ml inj ONE (16:23)
[2018-01-09] MEDS ORDERED: propofol inj 20 ML IV ONE (16:23)
[2018-01-09] MEDS ORDERED: ringers solution, lacted 1,000 ML IV SCH (16:36)
[2018-01-09] MEDS ORDERED: meperidine/PF 50mg/ml syringe IV PRN ×3 (16:40)
[2018-01-09] MEDS ORDERED: morphine 4 MG/ML inj SYRINge IV PRN ×2 (16:40)
[2018-01-09] MEDS ORDERED: ondansetron/PF 4mg/2ml inj IV PRN (16:40)
[2018-01-09] MEDS ORDERED: proCHLORperazine 10 MG/2 ml inj IV PRN (16:40)
[2018-01-09] MEDS: vancomycin inj 1,250 MG in normal saline 250ml IV soln 250 ML IV SCH (18:22)
[2018-01-09] MEDS: insulin Lispro (HumaLOG) vial - multi-dose SQ SCH (18:55)
[2018-01-09] MEDS ORDERED: insulin glargine (Lantus) pen - multi-dose SQ SCH (21:00)
[2018-01-09 21:04] LABS: % IRON SATURATION 49 % (11-46); IRON 153 UG/DL (53-167); TOTAL IRON BINDING CAPACITY 314 UG/DL (259-388)
[2018-01-10 02:00] VITALS: BP 127/77
[2018-01-10] MEDS: morphine 4 MG/ML inj SYRINge IV PRN ×2 (04:42→17:08)
[2018-01-10] MEDS: normal saline 1000ml 1,000 ML IV SCH ×2 (05:08→12:34)
[2018-01-10 05:26] LABS: BASOPHILS % (AUTO) 0.6 % (0-1); EOSINOPHILS # (AUTO) 0.3 X10'3 (0-0.9); EOSINOPHILS % (AUTO) 4.3 % (0-6); HEMATOCRIT 39.5 % (42.0-52.0); HEMOGLOBIN 13.9 g/dl (14.0-17.9); LYMPHOCYTES # (AUTO) 2.3 X10'3 (1.1-4.8); LYMPHOCYTES % (AUTO) 29.4 % (21-51); MEAN CORPUSCULAR HEMOGLOBIN 30.3 PG (27.0-31.0); MEAN CORPUSCULAR HGB CONC 35.2 % (33.0-36.5); MEAN CORPUSCULAR VOLUME 86.1 FL (78-98); MEAN PLATELET VOLUME 7.8 FL (7.4-10.4); MONOCYTES # (AUTO) 0.5 X10'3 (0-0.9); MONOCYTES % (AUTO) 6.9 % (2-12); NEUTROPHILS # (AUTO) 4.5 X10'3 (1.8-7.7); NEUTROPHILS % (AUTO) 58.8 % (42-75); PLATELET COUNT 398 X10'3 (140-440); RED BLOOD COUNT 4.59 X10'6 (4.70-6.10); RED CELL DISTRIBUTION WIDTH 13.6 % (11.5-14.5); WHITE BLOOD COUNT 7.7 X10'3 (4.5-11.0)
[2018-01-10 06:00] VITALS: BP 129/78
[2018-01-10 06:05] LABS: ALANINE AMINOTRANSFERASE 34 U/L (12-78); ALBUMIN 3.1 G/DL (3.4-5.0); ALBUMIN/GLOBULIN RATIO 0.8 (1.1-1.5); ALKALINE PHOSPHATASE 90 IU/L (46-116); ANION GAP 8 (8-16); ASPARTATE AMINO TRANSFERASE 21 U/L (10-37); BILIRUBIN,TOTAL 0.7 MG/DL (0.1-1.0); BLOOD UREA NITROGEN 15 MG/DL (7-18); BUN/CREATININE RATIO 15.6 (5.4-32.0); CALCIUM 8.5 MG/DL (8.5-10.1); CHLORIDE 102 MMOL/L (99-107); CREATININE 0.96 MG/DL (0.60-1.10); GLUCOSE 166 MG/DL (70-104); MAGNESIUM 1.9 MG/DL (1.5-2.4); POTASSIUM 4.2 MMOL/L (3.5-5.1); SODIUM 139 MMOL/L (135-145); TOTAL CARBON DIOXIDE 29.2 MMOL/L (24-32); eGFR 84 ML/MIN
[2018-01-10] MEDS: K and/or MAG REPLACEMENT MC SCH (07:36)
[2018-01-10] MEDS: lactobacillus rhamnosus 10,000 MMU CELLS/CAPSULE PO SCH ×2 (07:41→21:27)
[2018-01-10] MEDS: pantoprazole 40mg Tablet.DR PO SCH (07:41)
[2018-01-10] MEDS: lisinopril 20mg tablet PO SCH (07:42)
[2018-01-10] MEDS: gabapentin 300mg capsule PO SCH ×3 (07:42→21:27)
[2018-01-10] MEDS: vancomycin inj 1,250 MG in normal saline 250ml IV soln 250 ML IV SCH ×4 (07:42→17:07)
[2018-01-10] MEDS: aspirin 81mg tablet.DR PO SCH (07:45)
[2018-01-10] MEDS: insulin Lispro (HumaLOG) vial - multi-dose SQ SCH ×3 (09:20→19:00)
[2018-01-10 10:00] VITALS: BP 129/78
[2018-01-10] MEDS: HYDROcodone/acetaminophen 10/325mg tab PO PRN (12:23)
[2018-01-10] MEDS ORDERED: VANCOMYCIN LEVEL IV NR (15:30)
[2018-01-10 18:00] VITALS: BP 120/69
[2018-01-10] MEDS: ondansetron/PF 4mg/2ml inj IV PRN (19:01)
[2018-01-10] MEDS: insulin glargine (Lantus) pen - multi-dose SQ SCH (21:32)
[2018-01-10 22:00] VITALS: BP 113/77
[2018-01-11] MEDS: vancomycin inj 1,250 MG in normal saline 250ml IV soln 250 ML IV SCH ×2 (00:05→08:39)
[2018-01-11] MEDS: HYDROcodone/acetaminophen 10/325mg tab PO PRN ×2 (00:05→22:30)
[2018-01-11] MEDS: normal saline 1000ml 1,000 ML IV SCH ×3 (01:08→22:32)
[2018-01-11 05:16] LABS: BASOPHILS % (AUTO) 0.8 % (0-1); EOSINOPHILS # (AUTO) 0.3 X10'3 (0-0.9); EOSINOPHILS % (AUTO) 6.6 % (0-6); HEMATOCRIT 38.3 % (42.0-52.0); HEMOGLOBIN 13.7 g/dl (14.0-17.9); LYMPHOCYTES # (AUTO) 1.7 X10'3 (1.1-4.8); MEAN CORPUSCULAR HEMOGLOBIN 30.7 PG (27.0-31.0); MEAN CORPUSCULAR HGB CONC 35.8 % (33.0-36.5); MEAN CORPUSCULAR VOLUME 85.6 FL (78-98); MEAN PLATELET VOLUME 7.5 FL (7.4-10.4); MONOCYTES # (AUTO) 0.4 X10'3 (0-0.9); MONOCYTES % (AUTO) 8.9 % (2-12); NEUTROPHILS # (AUTO) 2.3 X10'3 (1.8-7.7); NEUTROPHILS % (AUTO) 47.7 % (42-75); PLATELET COUNT 344 X10'3 (140-440); RED BLOOD COUNT 4.48 X10'6 (4.70-6.10); RED CELL DISTRIBUTION WIDTH 13.2 % (11.5-14.5); WHITE BLOOD COUNT 4.8 X10'3 (4.5-11.0)
[2018-01-11 05:52] LABS: ALANINE AMINOTRANSFERASE 34 U/L (12-78); ALBUMIN 2.9 G/DL (3.4-5.0); ALBUMIN/GLOBULIN RATIO 0.7 (1.1-1.5); ALKALINE PHOSPHATASE 87 IU/L (46-116); ANION GAP 7 (8-16); ASPARTATE AMINO TRANSFERASE 19 U/L (10-37); BILIRUBIN,TOTAL 0.6 MG/DL (0.1-1.0); BLOOD UREA NITROGEN 11 MG/DL (7-18); BUN/CREATININE RATIO 12.8 (5.4-32.0); CALCIUM 8.5 MG/DL (8.5-10.1); CHLORIDE 103 MMOL/L (99-107); CREATININE 0.86 MG/DL (0.60-1.10); GLUCOSE 189 MG/DL (70-104); MAGNESIUM 1.8 MG/DL (1.5-2.4); POTASSIUM 3.9 MMOL/L (3.5-5.1); SODIUM 138 MMOL/L (135-145); TOTAL CARBON DIOXIDE 27.7 MMOL/L (24-32); TOTAL PROTEIN 6.8 G/DL (6.4-8.2); eGFR > 90 ML/MIN
[2018-01-11 06:00] VITALS: BP 144/87
[2018-01-11] MEDS: K and/or MAG REPLACEMENT MC SCH (08:00)
[2018-01-11] MEDS: lactobacillus rhamnosus 10,000 MMU CELLS/CAPSULE PO SCH ×2 (08:30→21:13)
[2018-01-11] MEDS: aspirin 81mg tablet.DR PO SCH (08:30)
[2018-01-11] MEDS: lisinopril 20mg tablet PO SCH (08:30)
[2018-01-11] MEDS: gabapentin 300mg capsule PO SCH ×3 (08:30→21:13)
[2018-01-11] MEDS: pantoprazole 40mg Tablet.DR PO SCH (08:30)
[2018-01-11] MEDS: insulin Lispro (HumaLOG) vial - multi-dose SQ SCH ×2 (08:51→13:42)
[2018-01-11] MEDS: morphine 4 MG/ML inj SYRINge IV PRN ×3 (09:17→17:41)
[2018-01-11 10:00] VITALS: BP_SYST 140; BP_SYST 155; BP_DIAS 61; BP_DIAS 93
[2018-01-11] MEDS ORDERED: levoFLOXACIN 750MG TABLET PO ONE (11:50)
[2018-01-11 18:00] VITALS: BP 142/88
[2018-01-11 22:00] VITALS: BP 138/69
[2018-01-11] MEDS: insulin glargine (Lantus) pen - multi-dose SQ SCH (22:23)
[2018-01-12 05:29] LABS: BASOPHILS % (AUTO) 0.6 % (0-1); EOSINOPHILS # (AUTO) 0.4 X10'3 (0-0.9); EOSINOPHILS % (AUTO) 6.8 % (0-6); HEMATOCRIT 38.7 % (42.0-52.0); HEMOGLOBIN 13.9 g/dl (14.0-17.9); LYMPHOCYTES # (AUTO) 2.1 X10'3 (1.1-4.8); LYMPHOCYTES % (AUTO) 35.4 % (21-51); MEAN CORPUSCULAR HEMOGLOBIN 30.5 PG (27.0-31.0); MEAN CORPUSCULAR HGB CONC 35.7 % (33.0-36.5); MEAN CORPUSCULAR VOLUME 85.4 FL (78-98); MEAN PLATELET VOLUME 7.2 FL (7.4-10.4); MONOCYTES # (AUTO) 0.7 X10'3 (0-0.9); MONOCYTES % (AUTO) 10.9 % (2-12); NEUTROPHILS # (AUTO) 2.8 X10'3 (1.8-7.7); NEUTROPHILS % (AUTO) 46.3 % (42-75); PLATELET COUNT 344 X10'3 (140-440); RED BLOOD COUNT 4.54 X10'6 (4.70-6.10); RED CELL DISTRIBUTION WIDTH 13.2 % (11.5-14.5)
[2018-01-12 06:00] VITALS: BP 126/83
[2018-01-12 06:55] LABS: ALANINE AMINOTRANSFERASE 36 U/L (12-78); ALBUMIN/GLOBULIN RATIO 0.8 (1.1-1.5); ALKALINE PHOSPHATASE 85 IU/L (46-116); ANION GAP 8 (8-16); ASPARTATE AMINO TRANSFERASE 25 U/L (10-37); BILIRUBIN,TOTAL 0.8 MG/DL (0.1-1.0); BLOOD UREA NITROGEN 14 MG/DL (7-18); BUN/CREATININE RATIO 15.4 (5.4-32.0); CALCIUM 8.7 MG/DL (8.5-10.1); CHLORIDE 104 MMOL/L (99-107); CREATININE 0.91 MG/DL (0.60-1.10); GLUCOSE 177 MG/DL (70-104); MAGNESIUM 1.9 MG/DL (1.5-2.4); POTASSIUM 4.1 MMOL/L (3.5-5.1); SODIUM 139 MMOL/L (135-145); TOTAL CARBON DIOXIDE 26.8 MMOL/L (24-32); TOTAL PROTEIN 6.9 G/DL (6.4-8.2); eGFR 89 ML/MIN
[2018-01-12] MEDS: normal saline 1000ml 1,000 ML IV SCH ×2 (08:36→17:15)
[2018-01-12] MEDS: gabapentin 300mg capsule PO SCH ×3 (08:37→20:30)
[2018-01-12] MEDS: aspirin 81mg tablet.DR PO SCH (08:37)
[2018-01-12] MEDS: lisinopril 20mg tablet PO SCH (08:37)
[2018-01-12] MEDS: pantoprazole 40mg Tablet.DR PO SCH (08:37)
[2018-01-12] MEDS: lactobacillus rhamnosus 10,000 MMU CELLS/CAPSULE PO SCH ×2 (08:37→20:30)
[2018-01-12] MEDS: insulin Lispro (HumaLOG) vial - multi-dose SQ SCH ×3 (08:39→18:52)
[2018-01-12] MEDS: K and/or MAG REPLACEMENT MC SCH (08:43)
[2018-01-12 10:00] VITALS: BP 134/88
[2018-01-12] MEDS: levoFLOXACIN 750MG TABLET PO SCH (12:57)
[2018-01-12] MEDS ORDERED: VANCOMYCIN LEVEL IV NR (15:30)
[2018-01-12 18:30] VITALS: BP 116/92
[2018-01-12] MEDS: insulin glargine (Lantus) pen - multi-dose SQ SCH (20:34)
[2018-01-12 22:00] VITALS: BP 113/71
[2018-01-12] MEDS: HYDROcodone/acetaminophen 10/325mg tab PO PRN (22:49)
[2018-01-13] MEDS: normal saline 1000ml 1,000 ML IV SCH (03:08)
[2018-01-13 04:27] LABS: BASOPHILS % (AUTO) 0.6 % (0-1); EOSINOPHILS # (AUTO) 0.4 X10'3 (0-0.9); EOSINOPHILS % (AUTO) 6.9 % (0-6); HEMATOCRIT 38.5 % (42.0-52.0); HEMOGLOBIN 13.5 g/dl (14.0-17.9); LYMPHOCYTES # (AUTO) 2.1 X10'3 (1.1-4.8); LYMPHOCYTES % (AUTO) 35.1 % (21-51); MEAN CORPUSCULAR HEMOGLOBIN 30.5 PG (27.0-31.0); MEAN CORPUSCULAR HGB CONC 35.2 % (33.0-36.5); MEAN CORPUSCULAR VOLUME 86.6 FL (78-98); MEAN PLATELET VOLUME 7.5 FL (7.4-10.4); MONOCYTES # (AUTO) 0.6 X10'3 (0-0.9); MONOCYTES % (AUTO) 9.9 % (2-12); NEUTROPHILS # (AUTO) 2.8 X10'3 (1.8-7.7); NEUTROPHILS % (AUTO) 47.5 % (42-75); PLATELET COUNT 326 X10'3 (140-440); RED BLOOD COUNT 4.44 X10'6 (4.70-6.10); RED CELL DISTRIBUTION WIDTH 13.5 % (11.5-14.5)
[2018-01-13 04:41] LABS: ALANINE AMINOTRANSFERASE 39 U/L (12-78); ALBUMIN 3.1 G/DL (3.4-5.0); ALBUMIN/GLOBULIN RATIO 0.8 (1.1-1.5); ALKALINE PHOSPHATASE 80 IU/L (46-116); ANION GAP 8 (8-16); ASPARTATE AMINO TRANSFERASE 25 U/L (10-37); BILIRUBIN,TOTAL 0.7 MG/DL (0.1-1.0); BLOOD UREA NITROGEN 12 MG/DL (7-18); BUN/CREATININE RATIO 10.5 (5.4-32.0); CALCIUM 8.8 MG/DL (8.5-10.1); CHLORIDE 103 MMOL/L (99-107); CREATININE 1.14 MG/DL (0.60-1.10); GLUCOSE 100 MG/DL (70-104); MAGNESIUM 1.8 MG/DL (1.5-2.4); POTASSIUM 3.6 MMOL/L (3.5-5.1); SODIUM 139 MMOL/L (135-145); TOTAL CARBON DIOXIDE 27.6 MMOL/L (24-32); eGFR 69 ML/MIN
[2018-01-13 05:00] VITALS: BP 112/63
[2018-01-13 05:30] VITALS: BP 112/63
[2018-01-13] MEDS: pantoprazole 40mg Tablet.DR PO SCH (07:30)
[2018-01-13] MEDS: K and/or MAG REPLACEMENT MC SCH (08:00)
[2018-01-13] MEDS: gabapentin 300mg capsule PO SCH (08:00)
[2018-01-13] MEDS: lactobacillus rhamnosus 10,000 MMU CELLS/CAPSULE PO SCH (08:00)
[2018-01-13] MEDS: aspirin 81mg tablet.DR PO SCH (08:00)
[2018-01-13] MEDS: lisinopril 20mg tablet PO SCH (08:00)
[2018-01-13] MEDS ORDERED: HYDR-569 PO (10:03)
[2018-01-13] MEDS ORDERED: HYDR-565 PO (10:28)
[2018-01-13] MEDS ORDERED: SULF1TAB49 PO (10:42)
[2018-01-13] MEDS: levoFLOXACIN 750MG TABLET PO SCH (11:14)
== END 2018-01-13 11:30 | disposition home or self-care (01) | DRG 312 ==
LOC: ER 16:50 → ED HOLD 23:08 → EDBEDREQ 01-09 02:14 → ORTHO 4S 01-09 03:55
PROVIDERS: ADMIT Internal Medicine; ATTEND Orthopaedic Surgery Hand Surgery
PROC: 0HBMXZZ Excision of Right Foot Skin, External Approach (ICD-10-PCS; principal; 2018-01-09 15:58)
DX: T87.81 Dehiscence of amputation stump (principal); E10.22 Type 1 diabetes mellitus with diabetic chronic kidney disease; E10.40 Type 1 diabetes mellitus with diabetic neuropathy, unspecified; T87.43 Infection of amputation stump, right lower extremity; E10.51 Type 1 diabetes mellitus with diabetic peripheral angiopathy without gangrene; E10.65 Type 1 diabetes mellitus with hyperglycemia; D64.9 Anemia, unspecified; N18.2 Chronic kidney disease, stage 2 (mild); I12.9 Hypertensive chronic kidney disease with stage 1 through stage 4 chronic kidney disease, or unspecified chronic kidney disease; Z79.4 Long term (current) use of insulin; Z83.3 Family history of diabetes mellitus; Y92.89 Other specified places as the place of occurrence of the external cause; Y83.5 Amputation of limb(s) as the cause of abnormal reaction of the patient, or of later complication, without mention of misadventure at the time of the procedure
CPT/HCPCS: 36415; 80053; 80061; 80202; 82948; 83540; 83550; 83605; 83735; 83880; 85025; 85610; 85730; 87040; 87070; 93005; 97162; 97530; 99285; A6222; A6223; A6258; A6446; A6449; A7000; J1815; J2001; J2250; J2270; J2405; J2704; J3010; J3370; J3490; J7030; J7120